=== PATIENT | female | born 1990 | race Caucasian/White ===

== ENCOUNTER 2018-01-27 02:27 | Inpatient (IN) | payer OTHER ==
[2018-01-27 03:05] VITALS: BMI 19.7
[2018-01-27] MEDS ORDERED: Magnesium Sulfate 4 gm/100 ml 4 GM/100 ML BAG IVPB ONE (03:31)
[2018-01-27] MEDS ORDERED: Lactated Ringer's 1,000 ML IV SCH ×2 (03:45)
[2018-01-27] MEDS ORDERED: Magnesium Sulfate 20 gm 20 GM/500 ML BAG IV SCH (03:45)
--- NOTE | 2018-01-27 04:10 | OBHP ---
Datetime: 01/27/2018 03:39 IP Adm Impression: , intrauterine IP Adm Impression Other: Previous C/S; threatened labor IP Admit Plan: Admit to unit IP Admit Plan Other: Tocolysis; administer celestone Admit Comment, IP Provider: 27 y.o. , LMP 05/23/17, AVA 02/27/18, EGA 35w 3d, previous sec tion c/o LAP onset 2200 hours, pain scale 5/10; described as cramps. Also c/o constipation: had smal l, hard BM in AM 01/26/18. (+) AFM; denies LOF, VB. Patient had a 1 mile walk earlier in the evening o f 01/26/18; pain started thereafter. care; Dr. Varma; noted for poor weight gain. No other iss ues, per patient P Ob: 2014, C/S, female, 6lb 1oz, failed labor. Angelica. 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 Denies STIs PMH: denies PSH: C/S NKDA Food allergy: Eggs = vomiting Meds: PNV - QD, Ensure - BID Soc Hx: denies tobacco, illicit drug or EtOH use. Lives with and child. 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 Father alive 52 - polydactyly - "6 fingers each hand; an d 6 toes each foot". No known fam h/o cancer P.E.: Petite; slightly anxious. present; servesa as clarification with translation. Lexie t in NAD. Pleasant and cooperative Assessment: 27 y.o P1, 35w 3d, previous C/S, threatened labor. Category [address] Varma, and this plan was discussed with patient and : admit; start magnesium suplhate for t ocolysis; administer celestone for lung profile. Most common side effects of magnesium were dis cssed. Anticipated benefits of tocoysis were discussed. torres's questsions were answere d. both parties expressed an understanidng and reluctsantly agree with the admission and plan of rosy robins. patient now states is feeling better; and wants to go home. It was explained that this would not be a arriola action to take, as she is contraciting and could dleivery prematurely. Patient is clin hebert stable. Plan: 1) Admit 2) NPO 3) Continuous EFM 4) Admission labs 5) IVFs 6) Magnesium sulphate - per protocol 7) Celestone 12 mg IM x 2 doses 8) If continues to contract, repeat cervical exam in 2 hours 9) SCDs 10) Observe - as per, and discussed with, Dr. Varma Pelvic Type - PN: Adequate Extremities - PN: Normal Abdomen - PN: Normal Back - PN: Normal Breast - PN: Not Done Lungs - PN: Normal Heart - PN: Normal Thyroid - PN: Normal Neurologic - PN: Normal HEENT - PN: Normal General - PN: Normal Presentation-Admit: Vertex FHR - Baseline A Provider: 135 Contraction Comments Provider: 3-5 Comments, ACOG Physical Exam: Abdomen: Gravid. Soft; intermittently mildly firm. Equivocal re: tende rness ... (+) "tendernes" reported with movement, along midline of abdomen, in area of umbilicu s. +/- suprapubic tenderness. Healed Pfannenstiel scar All other systems reviewed and are negative Gestation - Est Wks by US: 35w 3d EGA AdmitDate IP: 35.4 Vital Signs Provider: Reviewed; Within Normal Limits IP Chief Complaint: Uterine contractions NICHD Variability Prov Fetus A: Moderate 6-25bpm NICHD Accel Fetus A IP Provider: 15X15 FHR Category Provider Fetus A: Category I NICHD Decel Fetus A IP Provider: None Dilatation, Provider: 2 Effacement, Provider: 30 Station, Provider: -3 Genitourinary Exam: Normal DTRs - PN: Normal
[2018-01-27 04:20] LABS: SQUAMOUS EPITHIAL 3 /hpf (0-5); URINE BACTERIA OCC (<OCC); URINE BILIRUBIN NEGATIVE (NEGATIVE); URINE BLOOD NEGATIVE (NEGATIVE); URINE CLARITY Clear (Clear); URINE COLOR Yellow (YELLOW); URINE GLUCOSE (UA) NORMAL (Normal); URINE LEUKOCYTE ESTERASE NEG Leu/uL (Negative); URINE PROTEIN NEGATIVE (NEGATIVE); URINE UROBILINOGEN NORMAL mg/dL (0.2-1.0)
[2018-01-27] MEDS: Betamethasone Soluspan 30 mg/5mL Inj Susp IM SCH (04:20)
[2018-01-27 04:23] LABS: HEMOGLOBIN 10.1 g/dL (11.0-16.0); NRBC % 0.1 % (0.0-2.0); RED CELL DISTRIBUTION WIDTH 15.5 % (11.5-14.5); WHITE BLOOD COUNT 18.8 K/uL (4.8-10.8)
[2018-01-27 04:27] LABS: BASO # 0.1 K/uL (0.0-0.2); BASO % 0.5 % (0.0-2.0); EOS # 0.1 K/uL (0.0-0.7); EOS % 0.6 % (0.0-4.0); LYMPH # 3.6 K/uL (1.0-4.3); LYMPH % 18.9 % (20.0-40.0); MEAN CELL VOLUME 75.5 fL (81.0-99.0); MEAN CORPUSCULAR HEMOGLOBIN 25.6 pg (27.0-31.0); MEAN CORPUSCULAR HGB CONC 33.9 g/dL (33.0-37.0); MEAN PLATELET VOLUME 7.5 fL (7.2-11.7); MONO # 1.2 K/uL (0.0-0.8); MONO % 6.1 % (0.0-10.0); NEUT # 13.9 K/uL (1.8-7.0); NEUT % 73.9 % (50.0-75.0); RBC 3.94 Mil/uL (3.80-5.20)
[2018-01-27 04:49] LABS: ALB/GLOB RATIO 1.1 (1.0-2.1); ALBUMIN 3.1 g/dL (3.5-5.0); ALT/SGPT 19 U/L (9-52); AST/SGOT 19 U/L (14-36); BLOOD UREA NITROGEN 8 mg/dL (7-17); CALCIUM 8.9 mg/dl (8.6-10.4); GFR AFRICAN-AMERICAN > 60; GFR NON-AFRICAN AMERICAN > 60
[2018-01-27] MEDS ORDERED: Magnesium Sulfate 20 gm 20 GM/500 ML BAG IV STA (06:53)
--- NOTE | 2018-01-27 13:55 | OBADHP ---
Datetime: 01/27/2018 13:53 Contraction Comments Provider: occ Vital Signs Provider: Reviewed; Within Normal Limits FHR Category Provider Fetus A: Category I Dilatation, Provider: 2 Datetime: 01/27/2018 03:39 IP Adm Impression Other: Previous C/S; threatened labor IP Admit Plan Other: Tocolysis; administer celestone Admit Comment, IP Provider: Private patient of Dr Varma CC-abdominal pain HPI 27 y.o. , LMP 05/23/17, AVA 02/27/18, EGA 35w 4d, previous section c/o LAP onset 22 00 hours, pain scale 5/10; described as cramps. Also c/o constipation: had small, hard BM in AM 8. (+) AFM; denies LOF, VB. Patient had a 1 mile walk earlier in the evening of 01/26/18; pain started thereafter. drinks approx 1.5 to 2L of water daily but did not have enough water today . care; Dr. Varma; noted for poor weight gain. No other issues, per patient P Ob: 2014, C/S, female, 6lb 1oz, failed labor. Angelica. 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 Denies STIs PMH: denies PSH: C/S NKDA Food allergy: Eggs = vomiting Meds: PNV - QD, Ensure - BID Soc Hx: denies tobacco, illicit drug or EtOH use. Lives with and child. 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 Father alive 52 - polydactyly - "6 fingers each hand; an d 6 toes each foot". No known fam h/o cancer P.E.: Petite; slightly anxious. present; servesa as clarification with translation. Patien t in NAD. Pleasant and cooperative Assessment: 27 y.o P1, 35w 4 days in labor.discussed with patient about celestone.reviewed observation verus magnesium for tocolysis.risks and beenfits estephania ach discussed wbc 18k.UA neg. patient with no fever.no tachycardia.no fundal tendrness and no leaking of fluid celestone. continue to monitor closely Pelvic Type - PN: Adequate Extremities - PN: Normal Abdomen - PN: Normal Back - PN: Normal Breast - PN: Not Done Lungs - PN: Normal Heart - PN: Normal Thyroid - PN: Normal Neurologic - PN: Normal HEENT - PN: Normal General - PN: Normal Presentation-Admit: Vertex FHR - Baseline A Provider: 135 Comments, ACOG Physical Exam: Abdomen: Gravid. Soft; intermittently mildly firm. Equivocal re: tende rness ... (+) "tendernes" reported with movement, along midline of abdomen, in area of umbilicu s. +/- suprapubic tenderness. Healed Pfannenstiel scar All other systems reviewed and are negative Gestation - Est Wks by US: 35w 3d IP Chief Complaint: Uterine contractions NICHD Variability Prov Fetus A: Moderate 6-25bpm NICHD Accel Fetus A IP Provider: 15X15 NICHD Decel Fetus A IP Provider: None Effacement, Provider: 30 Station, Provider: -3 Genitourinary Exam: Normal DTRs - PN: Normal EGA AdmitDate IP: 35.4 IP Adm Impression: , intrauterine IP Admit Plan: Admit to unit
--- NOTE | 2018-01-27 13:59 | OBPN ---
Datetime: 01/27/2018 13:53 IP Progress Impression: Reassuring heart rate IP Procedures: Sterile Vag Exam IP Progress Plan: Continue present management Contraction Comments Provider: occ IP Progress Note Comment: S-patient comfortable.denies any abdominal pain O-VS 100/61 FHT cat1 Tooc ctx occ sve 2 cm A/P Patient in kabir.s/p [id number] magensium sulfate. and amteranl sttyus reassurin g -give second dose of adia -stop magnesium after second dose of celestone -monitor closely -implictions of delivery discussed with patient -magensium level q6 hours -monitor closely Vital Signs Provider: Reviewed; Within Normal Limits FHR Category Provider Fetus A: Category I Dilatation, Provider: 2 Datetime: 01/27/2018 03:39 FHR - Baseline A Provider: 135 Gestation - Est Wks by US: 35w 3d Presentation-Admit: Vertex NICHD Accel Fetus A IP Provider: 15X15 NICHD Variability Prov Fetus A: Moderate 6-25bpm Effacement, Provider: 30 Station, Provider: -3 NICHD Decel Fetus A IP Provider: None
[2018-01-27] MEDS ORDERED: Magnesium Sulfate 20 gm 20,000 MG/500 ML BAG IV ONE (14:26)
[2018-01-28] MEDS: Betamethasone Soluspan 30 mg/5mL Inj Susp IM SCH (04:20)
[2018-01-28 12:13] VITALS: BP 102/65; PULSE 94; RESP 16; TEMP 97.9
== END 2018-01-28 08:11 | disposition home or self-care (01) | DRG 765 ==
LOC: C.EROB 02:27 → C.4D 03:35
PROVIDERS: ADMIT Student in an Organized Health Care Education/Training Program; ATTEND Student in an Organized Health Care Education/Training Program
PROC: 10D00Z1 Extraction of Products of Conception, Low, Open Approach (ICD-10-PCS; principal; 2018-01-27)
DX: O60.14X0 Preterm labor third trimester with preterm delivery third trimester, not applicable or unspecified (principal); Z68.1 Body mass index [BMI] 19.9 or less, adult; O34.211 Maternal care for low transverse scar from previous cesarean delivery; K59.00 Constipation, unspecified; Z3A.35 35 weeks gestation of pregnancy; Z37.0 Single live birth

== ENCOUNTER 2018-02-20 03:41 | Inpatient (IN) | payer OTHER ==
[2018-02-20] MEDS ORDERED: Sodium Citrate/Citric Acid 15 ml Sol PO ONE (04:27)
[2018-02-20] MEDS ORDERED: Lactated Ringer's 1,000 ML IV SCH (04:30)
[2018-02-20] MEDS ORDERED: cefOXitin 2 GM in Sodium Chloride 0.9% 100 ML IV STA (04:42)
--- NOTE | 2018-02-20 04:50 | OBHP ---
Datetime: 02/20/2018 04:49 Admit Comment, IP Provider: 27 y.o. , LMP 05/23/17, AVA 02/27/18, EGA 35w 4d, previous sec tion c/o ctxs since 2am. denies decreased fm. pt was sched for rpeat cd in 2days. pmhx: deneis pshx: denies nkda shx: denies etoh, drugs or tobacco medc: pnv i: 38.5wks labor p: admit dr sanchez notified Datetime: 02/20/2018 04:41 IP Adm Impression: Term, intrauterine IP Admit Plan: Admit to unit; Initiate labor protocol Pelvic Type - PN: Adequate Extremities - PN: Normal Abdomen - PN: Normal Lungs - PN: Normal Heart - PN: Normal Neurologic - PN: Normal HEENT - PN: Normal General - PN: Normal Presentation-Admit: Vertex FHR - Baseline A Provider: 120 Membranes, Provider: Intact EGA AdmitDate IP: 39.0 Vital Signs Provider: Within Normal Limits IP Chief Complaint: Uterine contractions NICHD Variability Prov Fetus A: Minimal - Undetectable to <5bpm NICHD Accel Fetus A IP Provider: 15X15 FHR Category Provider Fetus A: Category I Dilatation, Provider: 10 Effacement, Provider: 100 Station, Provider: -2 Datetime: 01/27/2018 13:53 Contraction Comments Provider: occ
[2018-02-20] MEDS ORDERED: Lidocaine 2% MPF (5 ml) Inj ONE (04:51)
[2018-02-20 05:06] LABS: BASO # 0.1 K/uL (0.0-0.2); BASO % 0.4 % (0.0-2.0); EOS # 0.2 K/uL (0.0-0.7); EOS % 0.9 % (0.0-4.0); HEMOGLOBIN 10.6 g/dL (11.0-16.0); LYMPH # 3.2 K/uL (1.0-4.3); LYMPH % 14.8 % (20.0-40.0); MEAN CELL VOLUME 72.1 fL (81.0-99.0); MEAN CORPUSCULAR HEMOGLOBIN 23.7 pg (27.0-31.0); MEAN CORPUSCULAR HGB CONC 32.8 g/dL (33.0-37.0); MEAN PLATELET VOLUME 7.3 fL (7.2-11.7); MONO # 1.3 K/uL (0.0-0.8); MONO % 5.9 % (0.0-10.0); NEUT # 16.9 K/uL (1.8-7.0); NRBC % 0.1 % (0.0-2.0); RBC 4.49 Mil/uL (3.80-5.20); RED CELL DISTRIBUTION WIDTH 16.8 % (11.5-14.5); WHITE BLOOD COUNT 21.7 K/uL (4.8-10.8)
--- NOTE | 2018-02-20 05:13 | OBPN ---
Datetime: 02/20/2018 05:07 IP Progress Impression: Reassuring heart rate IP Procedures: Artificial ROM; Sterile Vag Exam IP Progress Plan: Continue present management Contraction Comments Provider: irregular Gestation - Est Wks by US: 39.0 Weight - Estimated: 3200 Presentation-Admit: Vertex IP Progress Note Comment: S-patient c/o labor pain O- FHT cat1 [place] irregular ctx sve fully/0 A/P Patient with hx of previous csection presents to hospital in active labor discussed with patient about trial of labor after csection and attempted .Risks and benefits d iscussed.Reviewed riks of uterine rupture and riks of hemorrhage, neurological damage to etc Reviewed doing repeat csection as well patient desires to have TOLAC.She and her are aware of the risks involved After the discussion arom done and clear fluid noted Patient pushing thereafter and brings head down to+1 plan-continue to monitor closely -anticipate vaginal delivery Vital Signs Provider: Reviewed FHR Category Provider Fetus A: Category I Dilatation, Provider: 10 Effacement, Provider: 100 Station, Provider: 0 Datetime: 02/20/2018 04:41 Membranes, Provider: Intact FHR - Baseline A Provider: 120 NICHD Accel Fetus A IP Provider: 15X15 NICHD Variability Prov Fetus A: Minimal - Undetectable to <5bpm
[2018-02-20] MEDS ORDERED: Tdap Vaccine 0.5 ml Vial (10-64 yrs) IM ONE (06:39)
[2018-02-20] MEDS ORDERED: Oxycodone/Acetaminophen 5/325 mg Tab PO PRN (06:39)
[2018-02-20] MEDS ORDERED: Benzocaine/Menthol 20%-0.5% Topical Spray (60 ml) TOP PRN ×2 (06:39→09:15)
--- NOTE | 2018-02-20 06:39 | OBDS ---
DELIVERY PERSONNEL Delivery Doctor: Yosef Varma MD Service Desk Director: Lilian Grant RN MATERNAL INFORMATION Delivery Anesthesia: Local Provider Comments: successful of a male .body and shoulders delivered without difficulty.nuchal cord noted but pa6tie nt delivered tjroughit.cord clamped and cut.placenta spontaneously delivered.Fundus firm.second degre e perineal laceration repaired with 2-0 chromic LABOR SUMMARY EDC: 02/27/2018 00:00 No. Babies in Womb: 1 Labor Anesthesia: None LABOR INFORMATION Onset of Labor: 02/20/2018 02:00 Complete Dilatation: 02/20/2018 04:10 Oxytocin: N/A Group B Beta Strep: Negative (Annotations: 02/04/2018) Steroids Given: > 24 Hours before Delivery Reason Steroids Not Administered: Other Other Reason Not Administered: Labor MEMBRANES Membranes Rupture Method: Artificial Rupture of Membranes: 02/20/2018 04:41 Length of Rupture (hrs): 1.38 Amniotic Fluid Color: Clear STAGES OF LABOR Stage 1 hrs: 2 Stage 1 min: 10 Stage 2 hrs: 1 Stage 2 min: 54 Stage 3 hrs: 0 Stage 3 min: 2 Total Time in Labor hrs: 4 Total Time in Labor min: 6 VAGINAL DELIVERY Episiotomy: None Laceration Extension: Second Degree Laceration Type: Perineal Laceration Repair: Yes Laceration Repair Note: second degree perineal lceration reapired with 2-0 chromic Initial Vag Sponge Count: 10+1Lap Initial Vag Sharps Count: 0 Final Vag Sharps Count: 2 Sponge Count Correct: Yes; Vaginal Sweep Performed Sharps Count Correct: Yes BABY A INFORMATION Infant Delivery Date/Time: 02/20/2018 06:04 Method of Delivery: Vaginal Born in Route : No : Successful Forceps: N/A Vacuum Extraction: N/A Shoulder Dystocia : No SHOULDER DYSTOCIA BABY A Delivery Date/Time: 02/20/2018 06:04 PRESENTATION/POSITION BABY A Presentation: Cephalic Cephalic Presentation: Vertex Vertex Position: Right Occipital Anterior Breech Presentation: N/A PLACENTA INFORMATION BABY A Placenta Delivery Time : 02/20/2018 06:06 Placenta Method of Delivery: Spontaneous Placenta Status: Delivered SCORES BABY A Heart Rate 1 min: >100 bpm Resp Effort 1 min: Good Cry Reflex Irritability 1 min: Cough or Sneeze or Pulls Away Muscle Tone 1 min: Active Motion Color 1 min: Body Bud, Extremities Blue SCORE 1 MIN: 9 Heart Rate 5 min: >100 bpm Resp Effort 5 min: Good Cry Reflex Irritability 5 min: Cough or Sneeze or Pulls Away Muscle Tone 5 min: Active Motion Color 5 min: Completely Bud SCORE 5 MIN: 10 INFANT INFORMATION BABY A Gestational Age at Delivery: 39.0 Gestational Status: Term Outcome : Liveborn Condition : Stable Infant Sex: Male IDENTIFICATION/MEDS BABY A ID Band Number: [id number] ID Band Location: Left Leg; Left Arm Sensor Applied: Yes Sensor Number: [id number] Sensor Location : Cord Clamp WEIGHT/LENGTH BABY A Birthweight (gms): 2785 Infant Weight (lb): 6 Infant Weight (oz): 2 Infant Length Inches: 18.50 Length cms: 47.0 CORD INFORMATION BABY A No. Cord Vessels: 3 Nuchal Cord : Around Neck x1, Loose Cord Blood Taken: Yes Suction: None ASSESSMENT BABY A Infant Complications: None Physical Findings at Delivery: Within Normal Limits Infant Respirations: Appears Normal Biomedical Scientist/ALS Called : No Care By: DR DOMINGUEZ Transferred To: Remains with Mother
[2018-02-20] MEDS: Multiple Vitamins Tab PO SCH (09:26)
--- NOTE | 2018-02-20 09:38 | OBADHP ---
Datetime: 02/20/2018 04:49 Admit Comment, IP Provider: 27 y.o. , LMP 05/23/17, AVA 02/27/18, EGA 35w 4d, previous sec tion c/o ctxs since 2am. denies decreased fm. pt was sched for rpeat cd in 2days. pmhx: deneis pshx: denies nkda shx: denies etoh, drugs or tobacco medc: pnv i: 38.5wks labor p: admit dr sanchze notified Datetime: 02/20/2018 04:41 Pelvic Type - PN: Adequate Extremities - PN: Normal Abdomen - PN: Normal Lungs - PN: Normal Heart - PN: Normal Neurologic - PN: Normal HEENT - PN: Normal General - PN: Normal Presentation-Admit: Vertex FHR - Baseline A Provider: 120 Membranes, Provider: Intact Vital Signs Provider: Within Normal Limits IP Chief Complaint: Uterine contractions NICHD Variability Prov Fetus A: Minimal - Undetectable to <5bpm NICHD Accel Fetus A IP Provider: 15X15 FHR Category Provider Fetus A: Category I Dilatation, Provider: 10 Effacement, Provider: 100 Station, Provider: -2 EGA AdmitDate IP: 39.0 IP Adm Impression: Term, intrauterine IP Admit Plan: Admit to unit; Initiate labor protocol
[2018-02-21 08:04] LABS: BASO # 0.1 K/uL (0.0-0.2); BASO % 0.3 % (0.0-2.0); EOS # 0.3 K/uL (0.0-0.7); EOS % 1.2 % (0.0-4.0); LYMPH # 3.3 K/uL (1.0-4.3); LYMPH % 13.8 % (20.0-40.0); MEAN CELL VOLUME 71.5 fL (81.0-99.0); MEAN CORPUSCULAR HEMOGLOBIN 23.6 pg (27.0-31.0); MEAN PLATELET VOLUME 7.3 fL (7.2-11.7); MONO # 1.4 K/uL (0.0-0.8); MONO % 5.9 % (0.0-10.0); NEUT # 19.1 K/uL (1.8-7.0); NEUT % 78.8 % (50.0-75.0); RBC 3.55 Mil/uL (3.80-5.20); RED CELL DISTRIBUTION WIDTH 16.5 % (11.5-14.5); WHITE BLOOD COUNT 24.2 K/uL (4.8-10.8)
[2018-02-21 08:06] LABS: HEMOGLOBIN 8.4 g/dL (11.0-16.0)
[2018-02-21] MEDS: Multiple Vitamins Tab PO SCH (10:08)
[2018-02-22] MEDS: Multiple Vitamins Tab PO SCH (09:51)
--- NOTE | 2018-02-22 11:14 | CP.PCM.PN ---
Subjective - Date & Time of Evaluation Date of Evaluation: 02/22/18 Time of Evaluation: 11:10 - Subjective Subjective: Patient was seen and examined at bedside in no acute distress. Patient reports feeling well and having minimal pelvic pain. She is tolerating her diet and ambulating without difficulty. Patient had a normal BM last night and this morning. Patient denies chest pain, dysuria, n/v, fevers, headaches, leg pain/ swelling. Objective - Vital Signs/Intake and Output Vital Signs (last 24 hours): Temp Pulse Resp BP Pulse Ox 98.6 F 84 18 92/55 L 100 02/22/18 08:00 02/22/18 08:00 02/22/18 08:00 02/22/18 08:00 02/22/18 08:00 - Medications Medications: Current Medications Benzocaine/Menthol (Dermoplast 20%-0.5%) 0 ml TOP DAILY PRN PRN Reason: PERIANEAL DISCOMFORT Last Admin: 02/20/18 11:29 Dose: 60 ml Docusate Sodium (Colace) 100 mg PO BID [facility] Last Admin: 02/22/18 09:51 Dose: 100 mg Ferrous Sulfate (Feosol) 325 mg PO DAILY [facility] Last Admin: 02/22/18 09:51 Dose: 325 mg Ibuprofen (Motrin Tab) 600 mg PO Q6 PRN PRN Reason: Pain, Mild (1-3) Last Admin: 02/22/18 08:13 Dose: 600 mg Metoclopramide HCl (Reglan) 10 mg IVP ONCE PRN PRN Reason: Nausea/Vomiting Multivitamins (Hexavitamin) 1 tab PO DAILY [facility] Last Admin: 02/22/18 09:51 Dose: 1 tab Oxycodone/Acetaminophen (Percocet 5/325 Mg Tab) 1 tab PO Q4H PRN PRN Reason: Pain, moderate (4-7) Stop: 02/23/18 06:40 Last Admin: 02/20/18 11:30 Dose: 1 tab - Labs Labs: 02/21/18 07:49 - Constitutional Appears: No Acute Distress - Head Exam Head Exam: ATRAUMATIC, NORMAL INSPECTION - Eye Exam Eye Exam: EOMI, Normal appearance - ENT Exam ENT Exam: Mucous Membranes Moist - Respiratory Exam Respiratory Exam: Clear to Ausculation Bilateral, NORMAL BREATHING PATTERN. absent: Rhonchi, Wheezes, Respiratory Distress - Cardiovascular Exam Cardiovascular Exam: REGULAR RHYTHM, +S1, +S2 - GI/Abdominal Exam GI & Abdominal Exam: Soft, Normal Bowel Sounds. absent: Firm, Tenderness - Extremities Exam Extremities Exam: Normal Inspection. absent: Pedal Edema, Tenderness - Neurological Exam Neurological Exam: Alert, Awake - Psychiatric Exam Psychiatric exam: Normal Affect, Normal Mood - Skin Skin Exam: Dry, Intact, Normal Color, Warm Assessment and Plan - Assessment and Plan (Free Text) Plan: Plan/Assessment: Continue current management. Continue pain management: ibuprofen 600mg PO Q6 prn for mild pain, Percocet 1 tab Q4h PRN for moderate-severe pain. Continue Feosol 325mg PO daily Continue Colace 100mg PO BID for constipation Encourage ambulation. Case discussed with Dr. Varma. Kasandra Judd, PGY1
[2018-02-22 14:39] LABS: BASO # 0.1 K/uL (0.0-0.2); BASO % 0.5 % (0.0-2.0); EOS # 0.3 K/uL (0.0-0.7); EOS % 1.6 % (0.0-4.0); HEMOGLOBIN 8.1 g/dL (11.0-16.0); LYMPH % 14.4 % (20.0-40.0); MEAN CORPUSCULAR HEMOGLOBIN 23.8 pg (27.0-31.0); MEAN PLATELET VOLUME 7.4 fL (7.2-11.7); MONO # 1.3 K/uL (0.0-0.8); MONO % 6.5 % (0.0-10.0); NRBC % 0.1 % (0.0-2.0); RBC 3.4 Mil/uL (3.80-5.20); RED CELL DISTRIBUTION WIDTH 16.8 % (11.5-14.5); WHITE BLOOD COUNT 20.8 K/uL (4.8-10.8)
[2018-02-22 16:19] VITALS: RESP 20
--- NOTE | 2018-02-22 17:28 | OBPPN ---
Datetime: 02/22/2018 17:25 PP Pain Prov: Within normal limits PP Nausea Prov: Denies PP Flatus Prov: Yes PP BM Prov: Yes PP Heart Prov: Normal PP Lungs Prov: Normal PP Abdomen/Uterus Prov: Normal PP Lochia Prov: Normal PP CVA Tenderness Prov: Normal PP Extremities Prov: Normal PP C/S Incision Prov: Not Applicable PP Progress Prov: Normal PP Impression Prov: Normal progression PP Plan Prov: Discharge PP Progress Note Prov: S-patient deneis any complaints.happy about the delivery O-VSS Afebrile Abdoemn soft and nontedner Fundus firm and below umbilicus extremities no calf tednerness A/P Patient s/p PPD 2 doing well.wbc trending mack.patient afebrile -dischareg today -follow up in office in 4 weeks -start iron once daily Vital Signs Provider PP: Reviewed; Within Normal Limits
[2018-02-22] MEDS ORDERED: Tdap Vaccine 0.5 ml Vial (10-64 yrs) IM ONE (17:30)
--- NOTE | 2018-02-22 17:31 | OBDCSUM ---
Datetime: 02/22/2018 10:57 Discharged to, Provider: Home Follow up at, Provider: dr sanchez Disch Instr Activity: Normal activity; May Shower Disch Instr Diet: Regular Discharge Diet restrict Prov: none Discharge Instructions, Provider: Routine instructions given Discharge Diagnosis, Provider: Term Delivered Follow up in weeks, Provider: 4 weeks Disch Referrals: None Disch Activity Restrictions: No exercising; No lifting; No sexual activity; Nothing in vagina - Inte rcourse, tampons, douche Discharge Comment, Provider: Call the office or go toe r if you have fever, sever pain, ehavy bleeid ng or any other problems Discharge Diagnosis Prov Other: s/p successful
[2018-02-23 02:18] VITALS: BP 110/72; PULSE 86; TEMP 98.2; O2SAT 99
== END 2018-02-22 22:16 | disposition home or self-care (01) | DRG 775 ==
LOC: C.EROB 03:41 → UNDOADMIN 04:11 → C.4D 04:11 → C.4LDOR 04:11 → C.4M 09:00
PROVIDERS: ADMIT Student in an Organized Health Care Education/Training Program; ATTEND Student in an Organized Health Care Education/Training Program
PROC: 10E0XZZ Delivery of Products of Conception, External Approach (ICD-10-PCS; principal; 2018-02-20)
PROC: 0KQM0ZZ Repair Perineum Muscle, Open Approach (ICD-10-PCS; 2018-02-20)
PROC: 10907ZC Drainage of Amniotic Fluid, Therapeutic from Products of Conception, Via Natural or Artificial Opening (ICD-10-PCS; 2018-02-20)
DX: O34.219 Maternal care for unspecified type scar from previous cesarean delivery (principal); O69.81X0 Labor and delivery complicated by cord around neck, without compression, not applicable or unspecified; Z37.0 Single live birth; Z3A.35 35 weeks gestation of pregnancy